=== PATIENT | female | born 1990 | race Caucasian/White ===

== ENCOUNTER 2017-03-30 02:21 | Emergency (ER) | payer OTHER ==
[2017-03-30] MEDS ORDERED: Morphine INJ* 4 MG/ML 1 ML CARPUJECT IV ONE (02:52)
[2017-03-30] MEDS ORDERED: Metoclopramide IV* 5 MG/ML 2 ML VIAL IV ONE (02:52)
[2017-03-30] MEDS ORDERED: NS 0.9% 1000 ML* 1,000 ML IV ONE (02:52)
[2017-03-30] MEDS ORDERED: Pantoprazole IV* 40 MG IV ONE (02:54)
[2017-03-30] MEDS ORDERED: Morphine INJ* 4 MG/ML 1 ML SYRINGE (NEW SYRINGE VERSION) ONE (03:01)
[2017-03-30 03:30] LABS: ABS Basophils 0 10^3/ul (0-0.2); ABS Eosinophils 0 10^3/ul (0-0.6); ABS Lymphocytes 1.3 10^3/ul (1.0-4.8); ABS Monocytes 0.7 10^3/ul (0-0.8); ABS Neutrophils 7.4 10^3/ul (1.5-7.7); ABS Nucleated RBC 0 10^3/ul; Eosinophil % 0.4 % (0-6); Hematocrit 40 % (35-47); Hemoglobin 13.9 g/dl (12.0-16.0); Lymphocyte % 14.1 % (25-47); Mean Corpuscular HGB Conc 35 g/dl (31-36); Mean Corpuscular Hemoglobin 30 pg (27-31); Mean Corpuscular Volume 86 fL (80-97); Mean Platelet Volume 10 um3 (7.4-10.4); Nucleated Red Blood Cells % 0.1; Platelet Count 180 10^3/ul (150-450); Red Blood Count 4.71 10^6/ul (4.0-5.4); Red Cell Distribution Width 12 % (10.5-15); White Blood Count 9.6 10^3/ul (3.5-10.8)
[2017-03-30 03:44] LABS: EGFR Non-African American 113.4 (>60)
[2017-03-30] MEDS ORDERED: Potassium Chlor TAB* 20 MEQ TAB.ER PO ONE (03:52)
[2017-03-30 04:09] VITALS: BP 106/68
--- NOTE | 2017-03-30 04:16 | ED ---
Laura Elizalde Thomas, scribed for Erik Quan MD on 03/30/17 at 0254 . Abdominal Pain/Female - HPI Summary HPI Summary: The patient presents with abdominal pain that woke her up an hour ago. She was nauseous and had some vomiting. The pain comes in waves. She rates the pain 7/ 10. She additional complains of pelvic pain. - History of Current Complaint Chief Complaint: EDAbdPain Stated Complaint: ABD PAIN Time Seen by Provider: 03/30/17 02:46 Hx Obtained From: Patient Onset/Duration: Lasting Hours - 1, Still Present Timing: Intermittent Episode Lasting Severity Currently: Severe Pain Intensity: 7 Pain Scale Used: 0-10 Numeric Radiates: No Aggravating Factor(s): Other: - Palpation Alleviating Factor(s): Nothing Associated Signs and Symptoms: Positive: Nausea, Vomiting, Other: - Pelvic pain Allergies/Adverse Reactions: Allergies Allergy/AdvReac Type Severity Reaction Status Date / Time bee venom protein (honey bee) Allergy Swelling Verified 03/30/17 02:26 PMH/Surg Hx/FS Hx/Imm Hx Endocrine/Hematology History: Denies: Hx Diabetes Cardiovascular History: Denies: Hx Hypertension, Hx Pacemaker/ICD History: Denies: Hx Renal Disease Sensory History: Denies: Hx Hearing Aid Psychiatric History: Denies: Hx Panic Disorder Infectious Disease History: No Infectious Disease History: Denies: Traveled Outside the [place] in Last 30 Days - Family History Known Family History: Positive: Other - Patient denies relevant Fhx - Social History Alcohol Use: Occasionally Substance Use Type: Reports: Other Substance Use Comment - Amount & Last Used: unknown Smoking Status (MU): Unknown if Ever Smoked Review of Systems Negative: Fever Positive: Abdominal Pain, Vomiting, Nausea Genitourinary: Other - Pelvic pain All Other Systems Reviewed And Are Negative: Yes Physical Exam - Summary Physical Exam Summary: VITAL SIGNS: Reviewed. GENERAL: Patient is a well-developed and nourished FEMALE who is lying comfortable in the stretcher. Patient is not in any acute respiratory distress. HEAD AND FACE: No signs of trauma. No ecchymosis, hematomas or skull depressions. No sinus tenderness. EYES: PERRLA, EOMI x 2, No injected conjunctiva, no nystagmus. EARS: Hearing grossly intact. Ear canals and tympanic membranes are within normal limits. MOUTH: Oropharynx within normal limits. NECK: Supple, trachea is midline, no adenopathy, no JVD, no carotid bruit, no c- spine tenderness, neck with full ROM. CHEST: Symmetric, no tenderness at palpation LUNGS: Clear to auscultation bilaterally. No wheezing or crackles. CVS: Regular rate and rhythm, S1 and S2 present, no murmurs or gallops appreciated. ABDOMEN: Soft. Epigastric tenderness. No signs of distention. No rebound no guarding, and no masses palpated. Bowel sounds are hyperactive. EXTREMITIES: FROM in all major joints, no edema, no cyanosis or clubbing. NEURO: Alert and oriented x 3. No acute neurological deficits. Speech is normal and follows commands. SKIN: Dry and warm Triage Information Reviewed: Yes Vital Signs On Initial Exam: Initial Vitals Temp Pulse Resp BP Pulse Ox 98.0 F 56 16 142/92 100 03/30/17 02:23 03/30/17 02:23 03/30/17 02:23 03/30/17 02:23 03/30/17 02:23 Vital Signs Reviewed: Yes Diagnostics - Vital Signs Vital Signs Temp Pulse Resp BP Pulse Ox 03/30/17 02:23 98.0 F 56 16 142/92 100 - Laboratory Result Diagrams: 03/30/17 03:15 03/30/17 03:15 Lab Statement: Any lab studies that have been ordered have been reviewed, and results considered in the medical decision making process. Abdominal Pain Fem Course/Dx - Course Course Of Treatment: The patient presents with abdominal pain that woke her up an hour ago. She was nausea and had some vomiting. The pain comes in waves. She rates the pain 7/10. She additional complains of pelvic pain. Bloodwork and urinalysis was obtained. The patient was given IV fluids, Reglan, morphine, Pepcid, and potassium chloride. The patient feels better and will be discharged home with primary care follow up. - Diagnoses Provider Diagnoses: Pain, abdominal, nonspecific Discharge - Discharge Plan Condition: Stable Disposition: HOME Patient Education Materials: Abdominal Pain (ED) Referrals: [facility] [Outside] - 3 Days Additional Instructions: Follow up with your primary care physician in three days. Return to the emergency department for any new or worsening symptoms. The documentation as recorded by the Laura perez Thomas accurately reflects the service I personally performed and the decisions made by Avelina quiñones Abdul, MD.
== END 2017-03-30 04:18 | disposition home or self-care (01) ==
LOC: ED 02:21
DX: R10.9 Unspecified abdominal pain (principal)
CPT/HCPCS: 36415; 80053; 82150; 83690; 83735; 84702; 85025; 86140; 96360; 96374; 96375; 99284; J2270; J2765

== ENCOUNTER 2017-04-22 06:12 | Day surgery (SDC) | payer OTHER ==
[~2017-04-22 06:12] MED LIST: Buffered Lidocaine 0.9% SYRIN* 5 ML/SYR SYRINGE INTRADERM ONE; Dexamethasone IV* 4 MG/ML 1 ML (4 MG) IV SLOW PU ONE; Famotidine IV* 10 MG/ML 2 ML (20 mg) IV ONE
[2017-04-22] MEDS ORDERED: Famotidine IV* 10 MG/ML 2 ML (20 mg) ONE (06:18)
[2017-04-22] MEDS ORDERED: ceFOXitin(*) 1 GM VIAL ONE (06:19)
[2017-04-22] MEDS ORDERED: Dexamethasone IV* 4 MG/ML 1 ML (4 MG) ONE (06:19)
[2017-04-22] MEDS ORDERED: Bupivacaine 0.5% SDV PF* 10-30ML VIAL ONE (06:46)
[2017-04-22] MEDS ORDERED: Bupivacaine 0.25% SDV* 30 ML ONE (06:47)
[2017-04-22] MEDS ORDERED: Atracurium* 10 MG/ML 10 ML VIAL ONE (07:15)
[2017-04-22] MEDS ORDERED: fentaNYL* 50 MCG/ML 5 ML VIAL (250 MCG VIAL) ONE (07:15)
[2017-04-22] MEDS ORDERED: Ondansetron INJ* 2 MG/ML VIAL ONE ×2 (07:15→10:44)
[2017-04-22] MEDS ORDERED: Midazolam* 1 MG/ML 5 ML VIAL (5 MG) ONE (07:15)
[2017-04-22] MEDS ORDERED: Ketorolac INJ* 30 MG/ML 1 ML VIAL ONE (07:15)
[2017-04-22] MEDS ORDERED: Propofol* 10 MG/ML 20 ML BTL IV PUSH ONE (07:15)
[2017-04-22] MEDS ORDERED: Lidocaine 2% PF * 5 ML VIAL ONE (07:16)
[2017-04-22] MEDS ORDERED: Scopolamine 1.5 mg* PATCH TRANSDERM PRN (07:26)
[2017-04-22] MEDS ORDERED: Naloxone* 0.4 MG/ML 1 ML VIAL IV PRN (07:26)
[2017-04-22] MEDS ORDERED: oxyCODONE/Acetamin 5/325 MG* TAB PO PRN (07:26)
[2017-04-22] MEDS ORDERED: HYDROmorphone INJ* 1 MG/ML CARPUJECT SYRINGE IV PRN (07:26)
[2017-04-22] MEDS ORDERED: DiMENhydriNATE IV* 50 MG/ML VIAL IV PUSH PRN (07:26)
[2017-04-22] MEDS ORDERED: Ondansetron INJ* 2 MG/ML VIAL IV PRN (07:26)
[2017-04-22] MEDS ORDERED: fentaNYL* 50 MCG/ML 2 ML VIAL (100 MCG VIAL) ONE (09:27)
[2017-04-22] MEDS: fentaNYL* 50 MCG/ML 2 ML VIAL (100 MCG VIAL) IV PRN ×2 (09:28→09:34)
[2017-04-22] MEDS ORDERED: oxyCODONE/Acetamin 5/325 MG* TAB ONE (10:08)
[2017-04-22 11:11] VITALS: BP 112/77
--- NOTE | 2017-05-11 22:41 | OP ---
DATE OF OPERATION: 04/22/17 - [facility] DATE OF : 89 SURGEON: Cleveland Lyle MD BUILDING MECHANIC: MELISSA Cabello ANESTHESIA: General anesthetic with endotracheal intubation. PRE-OP DIAGNOSES: Chronic pelvic pain with a presumptive diagnosis of endometriosis. POST-OP DIAGNOSES: Chronic pelvic pain with a presumptive diagnosis of endometriosis along with pelvic adhesions and endometrial cyst like lesions in the peritoneum. OPERATIVE PROCEDURE: Diagnostic laparoscopy, lysis of adhesions and a peritoneal biopsy of endometriosis implant. ESTIMATED BLOOD LOSS: None. SPECIMENS SENT TO PATHOLOGY: Posterior uterine cul-de-sac, retroperitoneal biopsy. IV FLUIDS: She received 1600 cc of IV crystalloid fluid. URINE OUTPUT: Clear. FINDINGS: The patient was noted to have cecum and bowel adherent to the right pelvic anterior sidewall. She had a normal appendix. She had a normal right tube and ovary. Normal uterus, bladder. There was posterior sparse endometriosis like implant in the posterior uterine cul-de-sac. The left tube and ovary were within normal limits. She had adhesions from the left pelvic sidewall just above the sigmoid. She had a normal liver edge, normal gallbladder and normal diaphragm. DESCRIPTION OF PROCEDURE: The patient was taken to the operating room where she was identified. She was placed on the operating table where a general anesthetic with endotracheal intubation was obtained without difficulty. She was then placed in the dorsal lithotomy position, prep and drape in normal sterile fashion. Patient was then brought on to the patient's perineum. The bladder was catheterized with a Booker catheter and drained of clear urine. A weighted-speculum was inserted into the patient's vagina. The cervix was identified, grasped with a single-tooth tenaculum. The uterus was then sounded to about 8 cm in an anteverted position and through the cervix, a ClearView uterine manipulator was introduced. The balloon and the manipulator was insufflated with 4 cc of sterile water. At this point, attention was then brought on to the patient's abdomen where a 1-cm infraumbilical skin incision made with a knife and carried through to the underlying layer of fascia. The fascia was then grasped with Ca clamps, brought up to the incision and incised medially with the knife sharply. Entry into the patient's abdomen was confirmed using a Maite clamp. The Ca clamps were then replaced with 0 Polysorb suture. Through this incision, a 10-mm trocar was introduced and attached to the sutures. The balloon and the trocar was insufflated with 20 cc of air and into through trocar, a scope was introduced. The patient's abdomen was then insufflated with CO2 gas. She was placed in a Trendelenburg position and a survey of the patient's anatomy confirmed findings as noted above. Two trocars were introduced at their right and left upper quadrant aspect of the patient's abdomen under direct visualization. At this point, I proceeded to remove the filmy adhesions from the right abdominal pelvic sidewall to the bowel. This was done using blunt and sharp dissection with a LigaSure device and cautery. The same was done to left pelvic sidewall and bowel adhesions. On the left side, I was unable to completely remove all the adhesions because some of the adhesions were pretty dense and away from the pelvis. Once the adhesions were mobilized, I was able to then completely view the pelvis, fallopian tubes, ovaries, cul-de-sac, and uterus. The patient was noted to have several endometriosis like implants on the posterior aspect of the uterine wall and cul-de-sac. One was biopsied using sharp scissors to remove the endometrial implant, which was sent to Pathology. This was then grasped with LigaSure and cauterized. The other implants were then cauterized using LigaSure. There was a total of about 4 sites that were cauterized. At this point, I appreciated then to irrigate the patient's abdomen. The irrigation fluid was then removed. The site of cautery and lysis of adhesions were noted to be completely hemostatic, so I then proceeded to remove all the instruments from the patient's abdomen. The CO2 gas was removed as well. The fascia on the umbilicus was closed using 0 Polysorb suture in a running fashion and all the skin incisions were then closed with 4-0 Monocryl in a subcuticular stitch. The instruments from the patient's vagina were also removed as well as the uterine manipulator and Booker catheter. Sponge, lap, and needle counts were correct x2. She was then transferred to recovery room area in stable condition. [id number]/[facility] #: [id number] [facility]
== END 2017-04-22 11:15 | disposition home or self-care (01) ==
LOC: OR 06:12
PROVIDERS: ATTEND Obstetrics & Gynecology
DX: N80.3 Endometriosis of pelvic peritoneum (principal); R10.2 Pelvic and perineal pain; K66.0 Peritoneal adhesions (postprocedural) (postinfection); J45.909 Unspecified asthma, uncomplicated
CPT/HCPCS: 81025; 88305; A9270-GY; J0694; J1100; J1885; J2250; J2405; J2704; J3010

== ENCOUNTER 2018-09-22 22:46 | Emergency (ER) | payer OTHER ==
[2018-09-23] MEDS ORDERED: hydrALAZINE IV* 20 MG/ML VIAL IV SLOW PU ONE
[2018-09-23 00:06] LABS: ABS Eosinophils 0.1 10^3/ul (0-0.6); ABS Lymphocytes 1.5 10^3/ul (1.0-4.8); ABS Monocytes 0.9 10^3/ul (0-0.8); ABS Neutrophils 8.9 10^3/ul (1.5-7.7); Eosinophil % 0.5 %; Hematocrit 32 % (35-47); Lymphocyte % 12.9 %; Mean Corpuscular HGB Conc 35 g/dL (31-36); Mean Corpuscular Hemoglobin 32 pg (27-31); Mean Corpuscular Volume 91 fL (80-97); Mean Platelet Volume 9.3 fL (7.4-10.4); Platelet Count 161 10^3/uL (150-450); Red Blood Count 3.48 10^6 /uL (3.70-4.87); Red Cell Distribution Width 13 % (10-15); White Blood Count 11.3 10^3/uL (3.5-10.8)
--- NOTE | 2018-09-23 00:11 | ED ---
GI/ HPI - HPI Summary HPI Summary: This patient is a 28 year old female presenting to [facility] with a chief complaint of left flank pain. 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 She reports nausea. She denies vomiting. She rates her pain 8/10 in severity. She says moving and breathing aggravates the pain. She states she has never had pain like this before. - History of Current Complaint Chief Complaint: EDFlankPain Time Seen by Provider: 09/22/18 23:59 Stated Complaint: 22 WEEKS , BACK PAIN PER BOYFRIEND Hx Obtained From: Patient Onset/Duration: Started Hours Ago Timing: Constant Pain Intensity: 8 - Allergy/Home Medications Allergies/Adverse Reactions: Allergies Allergy/AdvReac Type Severity Reaction Status Date / Time bee venom protein (honey bee) Allergy Intermediate Swelling Verified 04/18/17 09 :20 Iodinated Contrast- Oral and Allergy Mild Rash Verified 09/23/17 18:10 IV Dye latex Allergy Mild Rash Verified 04/18/17 09:20 Home Medications: Home Medications Cetirizine* [ZyrTEC 10 MG TAB*] 10 mg PO DAILY 09/23/18 [History Confirmed 09/23] [place]-3 Fatty Acids/Fish Oil [Fish Oil 1200 mg] 1 cap PO 09/23/18 [History] Pnv No.103/Folic/Om3s/Fish Oil [ Gummies/Dha & Fo 0.4-32.5 mg] 1 chw PO 09/23/18 [History] Pyridoxine HCl (Vitamin B6) [Vitamin B-6] 25 mg PO BID 09/23/18 [History Confirmed 09/23/18] PMH/Surg Hx/FS Hx/Imm Hx Endocrine/Hematology History: Denies: Hx Diabetes Cardiovascular History: Denies: Hx Hypertension, Hx Pacemaker/ICD Respiratory History: Reports: Hx Asthma - no attacks for many years History: Denies: Hx Renal Disease Musculoskeletal History: Reports: Other Musculoskeletal History - sciatica Sensory History: Reports: Hx Contacts or Glasses - both= will wear glasses day of surgery Denies: Hx Hearing Aid Opthamlomology History: Reports: Hx Contacts or Glasses - both= will wear glasses day of surgery Psychiatric History: Denies: Hx Panic Disorder - Cancer History Hx Chemotherapy: No - Surgical History Surgery Procedure, Year, and Place: LAPEROSCOPY Infectious Disease History: No Infectious Disease History: Denies: Traveled Outside the [place] in Last 30 Days - Family History Known Family History: Positive: Other - Patient denies relevant Fhx - Social History Alcohol Use: Occasionally Substance Use Type: Reports: Other Substance Use Comment - Amount & Last Used: unknown Smoking Status (MU): Unknown if Ever Smoked Review of Systems Positive: Nausea. Negative: Vomiting Positive: flank pain All Other Systems Reviewed And Are Negative: Yes Physical Exam - Summary Physical Exam Summary: VITAL SIGNS: Reviewed. GENERAL: Patient is a well-developed and nourished FEMALE who is lying comfortable in the stretcher. Patient is not in any acute respiratory distress. HEAD AND FACE: No signs of trauma. No ecchymosis, hematomas or skull depressions. No sinus tenderness. EYES: PERRLA, EOMI x 2, No injected conjunctiva, no nystagmus. EARS: Hearing grossly intact. Ear canals and tympanic membranes are within normal limits. MOUTH: Oropharynx within normal limits. NECK: Supple, trachea is midline, no adenopathy, no JVD, no carotid bruit, no c- spine tenderness, neck with full ROM. Left mid back pain. CHEST: Symmetric, no tenderness at palpation LUNGS: Clear to auscultation bilaterally. No wheezing or crackles. CVS: Regular rate and rhythm, S1 and S2 present, no murmurs or gallops appreciated. ABDOMEN: Soft, non-tender. No signs of distention. No rebound no guarding, and no masses palpated. Bowel sounds are normal. Fundal is at 20 weeks. EXTREMITIES: FROM in all major joints, no edema, no cyanosis or clubbing. NEURO: Alert and oriented x 3. No acute neurological deficits. Speech is normal and follows commands. SKIN: Dry and warm Triage Information Reviewed: Yes Vital Signs On Initial Exam: Initial Vitals Temp Pulse Resp BP Pulse Ox 97.3 F 84 20 113/79 100 09/22/18 22:48 09/22/18 22:48 09/22/18 22:48 09/22/18 22:48 09/22/18 22:48 Vital Signs Reviewed: Yes Diagnostics - Vital Signs Vital Signs Temp Pulse Resp BP Pulse Ox 09/22/18 22:48 97.3 F 84 20 113/79 100 - Laboratory Result Diagrams: 09/22/18 23:49 09/22/18 23:49 Lab Statement: Any lab studies that have been ordered have been reviewed, and results considered in the medical decision making process. - Ultrasound No standard instances Ultrasound Interpretation Completed By: Radiologist Summary of Ultrasound Findings: Renal US: 1. Left-sided hydronephrosis which is moderate in severity. 2. Irregular thinkening of the superior ladder wall. This appears to be a soft tissue lesion. Recommend further correlation with a consideration of an MRI study. ED Provider has reviewed this report. GIGU Course/Dx - Course Course Of Treatment: This patient is a 28 year old female presenting to [facility] with a chief complaint of right flank pain. 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 Renal US reveals 1. Left-sided hydronephrosis which is moderate in severity. 2. Irregular thinkening of the superior ladder wall. She feels better after taking Tylenol. She will follow up with her OB on Tuesday. A plan for discharge was discussed with the patient and she was agreeable with this plan. - Diagnoses Provider Diagnoses: Hydronephrosis, left Discharge - Sign-Out/Discharge Documenting (check all that apply): Patient Departure - Discharge Patient Received Moderate/Deep Sedation with Procedure: No - Discharge Plan Condition: Stable Disposition: HOME Patient Education Materials: Hydronephrosis (ED) Referrals: No Primary Care Phys,NOPCP [Primary Care Provider] - Additional Instructions: Follow up with your dental amalgam processor on Tuesday. - Attestation Statements Document Initiated by Scribe: Yes Documenting Scribe: Karan Morales Provider For Whom Carisaibe is Documenting (Include Credential): Erik Quan MD Scribe Attestation: Karan Elizalde, lindyed for Erik Quan MD on 09/23/18 at 0145. Status of Scribe Document: Ready
[2018-09-23 00:17] LABS: Albumin 3.7 g/dL (3.2-5.2); Albumin/Globulin Ratio 1.3 (1-3); BUN/Creatinine Ratio 10.5 (8-20); Calcium 9.6 mg/dL (8.6-10.3); EGFR Non-African American 201.7 (>60); Globulin 2.9 g/dL (2-4); Potassium 3.7 mmol/L (3.5-5.0); Total Bilirubin 0.3 mg/dL (0.2-1.0); Total Protein 6.6 g/dL (6.4-8.9)
[2018-09-23 00:31] LABS: Urine Appearance Clear; Urine Bilirubin Negative (Negative); Urine Blood Negative (Negative); Urine Color Colorless; Urine Glucose Negative (Negative); Urine Ketones Negative (Negative); Urine Nitrite Negative (Negative); Urine Protein Negative (Negative); Urine Specific Gravity 1.002 (1.010-1.030); Urine Urobilinogen Negative (Negative)
[2018-09-23] MEDS ORDERED: Metoclopramide IV* 5 MG/ML 2 ML VIAL IV SLOW PU ONE (00:31)
[2018-09-23] MEDS ORDERED: Acetaminophen ADULT LIQ* 650 MG/20.3 ML UDC PO ONE (00:31)
[2018-09-23] MEDS ORDERED: Lactated Ringers 1000 ML Bag* 1,000 ML IV SCH (01:00)
[2018-09-23 03:41] VITALS: BP 105/58
== END 2018-09-23 03:10 | disposition home or self-care (01) ==
LOC: ED 22:46
DX: N13.30 Unspecified hydronephrosis (principal); J45.909 Unspecified asthma, uncomplicated; Z91.041 Radiographic dye allergy status; Z91.040 Latex allergy status; Z79.899 Other long term (current) drug therapy
CPT/HCPCS: 36415; 76775; 80053; 81003; 85025; 96374; 96375; 99283; A9270-GY

== ENCOUNTER 2018-11-10 19:33 | Emergency (ER) | payer OTHER ==
--- NOTE | 2018-11-10 19:49 | UC ---
Eye Complaint HPI - HPI Summary HPI Summary: 28 yo female presents with RIGHT eye pressure. She tells me that this morning she woke up and had some mild right eye pressure that waxed and waned throughout the day. She wears contacts daily and took them out a few hours ago and she feels that the pressure has increased since that time. Currently rates pressure discomfort at a 3, but can go up to an 8. She has had some clear drainage/tears from the eye. Slight photophobia. She has also been having trouble with sinus pain/pressure/congestion for the last week. Has not been taking anything OTC for her symptoms. She is currently 29 weeks - no issues thusfar with . She denies headaches, vision changes, trauma to the eye, fever, chills, sore throat, cough. She sees Dr. Delarosa for her eye care. - History of Current Complaint Stated Complaint: eye IRRITATION Time Seen by Provider: 11/10/18 19:48 Hx Obtained From: Patient Onset/Duration: Gradual Onset Severity Initially: Mild Severity Currently: Moderate Pain Intensity: 6 Pain Scale Used: 0-10 Numeric - Allergies/Home Medications Allergies/Adverse Reactions: Allergies Allergy/AdvReac Type Severity Reaction Status Date / Time bee venom protein (honey bee) Allergy Intermediate Swelling Verified 11/10/18 19 :54 Iodinated Contrast Media Allergy Mild Rash Verified 11/10/18 19:54 latex Allergy Mild Rash Verified 11/10/18 19:54 Home Medications: Home Medications Cholecalciferol (Vitamin D3) [Vitamin D3] 2,000 unit PO DAILY WITH MEAL [History Confirmed 11/10/18] Magnesium Oxide [Magnesium] 200 mg PO DAILY WITH MEAL 11/10/18 [History Confirmed 11/10/18] PMH/Surg Hx/FS Hx/Imm Hx - Additional Past Medical History Additional PMH: None - Surgical History Surgical History: None Surgery Procedure, Year, and Place: LAPEROSCOPY - Family History Known Family History: Positive: Other - Patient denies relevant Fhx - Social History Lives: With Family Alcohol Use: Occasionally Substance Use Type: Other Substance Use Comment - Amount & Last Used: unknown Smoking Status (MU): Never Smoked Tobacco Review of Systems All Other Systems Reviewed And Are Negative: No Constitutional: Positive: Negative Skin: Positive: Negative Eyes: Positive: Other - Eye pain ENT: Positive: Nasal Discharge, Sinus Congestion, Sinus Pain/Tenderness Respiratory: Positive: Negative Cardiovascular: Positive: Negative Neurological: Positive: Negative Psychological: Positive: Negative Physical Exam - Summary Physical Exam Summary: GENERAL: WDWN. No pain distress. SKIN: No rashes, sores, lesions, or open wounds. HEENT: Head: AT/NC Eyes: EOM intact without pain b/l. PERRLA. RIGHT EYE: No scleral injection. Conjunctiva without erythema and inflammation. No discharge. No exopthalmous. Fluorescein exam revealed no increased uptake. No abrasion, ulceration, lesion, or pete sign. Ears: Hearing grossly normal. TMs intact, no bulging, erythema, or edema. Nose: Nasal mucosa mildly swollen and erythematous with yellow/ clear discharge. TTP maxillary and frontal sinus. Positive post nasal drip Throat: Posterior oropharynx without exudates, erythema, or tonsillar enlargement. Uvula midline. NECK: Supple. Nontender. No lymphadenopathy. CHEST: CTAB. No r/r/w. No accessory muscle use. Breathing comfortably and in no distress. CV: RRR. Without m/r/g. Pulses intact. NEURO: Alert. PSYCH: Age appropriate behavior. Triage Information Reviewed: Yes Vital Signs: Vital Signs: Temp Pulse Resp BP Pulse Ox 98.3 F 96 19 113/71 100 11/10/18 19:49 11/10/18 19:49 11/10/18 19:49 11/10/18 19:49 11/10/18 19:49 Vital Signs Reviewed: Yes Eye Complaint Course/Dx - Course Course Of Treatment: Pt had no relief with tetracaine instillation. Suspect glaucoma during - however I am unable to test intraocular pressure in the clinic. I called Dr. Delarosa and discussed the case with him, he will see pt in his office tomorrow. He mentions that glaucoma is low on his differential as it is usually bilateral and she is having no changes in visual acuity. He recommends treated her sinus congestion and he will see her in his office tomorrow. Discussed with pt and her with her today and they are agreeable with the plan. Advised to try OTC flonase and mucinex. Go to ED if pain worsens or if develops visual changes. - Differential Dx/Diagnosis Provider Diagnosis: Eye pressure, Sinus congestion Discharge ED - Sign-Out/Discharge Documenting (check all that apply): Patient Departure All imaging exams completed and their final reports reviewed: No Studies - Discharge Plan Condition: Stable Disposition: HOME Patient Education Materials: Sinusitis (ED), Eye Pain (ED) Referrals: No Primary Care Phys,NOPCP [Primary Care Provider] - Additional Instructions: If you develop a fever, shortness of breath, chest pain, new or worsening symptoms - please call your PCP or go to the ED immediately. Please try flonase and mucinex as directed [id number]. These medications, when used as recommended doses, are ok in . Please follow up with Dr. Delarosa - he will see you in his office tomorrow to recheck your eye - Billing Disposition and Condition Condition: STABLE Disposition: Home
[2018-11-10 19:54] VITALS: BP 113/71
[2018-11-10] MEDS ORDERED: Tetracaine 0.5% OPTH.SOL 4 ML* 1 DROP BTL BOTH EYES ONE (20:02)
[2018-11-10] MEDS ORDERED: Fluorescein Sodium TOPICAL* 1 MG TEST STRIP OPHTHALMIC ONE (20:10)
== END 2018-11-10 20:46 | disposition home or self-care (01) ==
LOC: UCEAST 19:33
DX: O26.893 Other specified pregnancy related conditions, third trimester (principal); H57.89 Other specified disorders of eye and adnexa; R09.81 Nasal congestion; Z3A.29 29 weeks gestation of pregnancy; Z91.030 Bee allergy status; Z91.041 Radiographic dye allergy status; Z91.040 Latex allergy status
CPT/HCPCS: 99211; A9270-GY; G0463

== ENCOUNTER 2018-11-24 18:32 | Emergency (ER) | payer OTHER ==
[2018-11-24 20:09] LABS: Hematocrit 33 % (35-47); Hemoglobin 11.5 g/dL (12.0-16.0); Mean Corpuscular HGB Conc 35 g/dL (31-36); Mean Corpuscular Hemoglobin 32 pg (27-31); Mean Corpuscular Volume 91 fL (80-97); Mean Platelet Volume 9.6 fL (7.4-10.4); Platelet Count 169 10^3/uL (150-450); Red Blood Count 3.65 10^6 /uL (3.70-4.87); Red Cell Distribution Width 15 % (10-15); White Blood Count 14.8 10^3/uL (3.5-10.8)
[2018-11-24 20:29] LABS: Albumin 3.6 g/dL (3.2-5.2); Albumin/Globulin Ratio 1.3 (1-3); BUN/Creatinine Ratio 14.3 (8-20); EGFR African American 268.3 (>60); EGFR Non-African American 221.7 (>60); Globulin 2.7 g/dL (2-4); Magnesium 1.9 mg/dL (1.9-2.7); Potassium 3.4 mmol/L (3.5-5.0); Total Bilirubin 0.3 mg/dL (0.2-1.0); Total Protein 6.3 g/dL (6.4-8.9)
[2018-11-24 20:31] LABS: ABS Eosinophils 0.1 10^3/ul (0-0.6); ABS Lymphocytes 2.1 10^3/ul (1.0-4.8); ABS Monocytes 1.2 10^3/ul (0-0.8); ABS Neutrophils 11.5 10^3/ul (1.5-7.7); Eosinophil % 0.5 %; Lymphocyte % 14.1 %
--- NOTE | 2018-11-24 20:35 | ED ---
Palpitations / Dysrhythmia - HPI Summary HPI Summary: 28-year-old female at 31 weeks presents with palpitations today. States she is complaining is weird feeling in her chest for a couple minutes for the past 5 days. She states symptoms are intermittently. States feels like a pressure. She states that her left arm becomes week. She denies any increased swelling or pain in her legs. No shortness of breath. States it feels better when she takes a deep breath. She does have a cough. No recent illness. no recent travel. Nonsmoker. - History of Current Complaint Chief Complaint: EDDysrhythmPalp Time Seen by Provider: 11/24/18 19:45 - Allergy/Home Medications Allergies/Adverse Reactions: Allergies Allergy/AdvReac Type Severity Reaction Status Date / Time bee venom protein (honey bee) Allergy Intermediate Swelling Verified 11/10/18 19 :54 Iodinated Contrast Media Allergy Mild Rash Verified 11/10/18 19:54 latex Allergy Mild Rash Verified 11/10/18 19:54 PMH/Surg Hx/FS Hx/Imm Hx Endocrine/Hematology History: Denies: Hx Diabetes, Hx Thyroid Disease Cardiovascular History: Denies: Hx Hypertension, Hx Pacemaker/ICD Respiratory History: Reports: Hx Asthma - no attacks for many years Denies: Hx Chronic Obstructive Pulmonary Disease (COPD) GI History: Denies: Hx Ulcer History: Denies: Hx Renal Disease Musculoskeletal History: Reports: Other Musculoskeletal History - sciatica Sensory History: Reports: Hx Contacts or Glasses - both= will wear glasses day of surgery Denies: Hx Hearing Aid Opthamlomology History: Reports: Hx Contacts or Glasses - both= will wear glasses day of surgery Psychiatric History: Denies: Hx Panic Disorder - Cancer History Hx Chemotherapy: No - Surgical History Surgery Procedure, Year, and Place: LAPEROSCOPY - Immunization History Immunizations Up to Date: Yes Infectious Disease History: No Infectious Disease History: Denies: Hx Hepatitis, Hx Human Immunodeficiency Virus (HIV), Traveled Outside the [place] in Last 30 Days - Family History Known Family History: Positive: Other - Patient denies relevant Fhx - Social History Alcohol Use: Occasionally Alcohol Amount: prior to Substance Use Type: Reports: None Substance Use Comment - Amount & Last Used: unknown Smoking Status (MU): Never Smoked Tobacco Review of Systems Negative: Fever Positive: Chest Pain Positive: Shortness Of Breath, Cough All Other Systems Reviewed And Are Negative: Yes Physical Exam Triage Information Reviewed: Yes Vital Signs On Initial Exam: Initial Vitals Temp Pulse Resp BP Pulse Ox 98.4 F 92 16 107/70 98 11/24/18 18:33 11/24/18 18:33 11/24/18 18:33 11/24/18 18:33 11/24/18 18:33 Vital Signs Reviewed: Yes Appearance: Positive: Well-Appearing Skin: Positive: Warm, Dry Head/Face: Positive: Normal Head/Face Inspection Eyes: Positive: Normal, EOMI, MOISES, Conjunctiva Clear ENT: Positive: Normal ENT inspection, Pharynx normal, TMs normal Neck: Positive: Supple, Nontender, No Lymphadenopathy Respiratory/Lung Sounds: Positive: Clear to Auscultation, Breath Sounds Present Cardiovascular: Positive: Normal, RRR Abdomen Description: Positive: Other: - baby felt above umblicius Bowel Sounds: Positive: Present Musculoskeletal: Positive: Normal Neurological: Positive: Normal Psychiatric: Positive: Normal Procedures - Sedation Patient Received Moderate/Deep Sedation with Procedure: No Diagnostics - Vital Signs Vital Signs Temp Pulse Resp BP Pulse Ox 11/24/18 18:33 98.4 F 92 16 107/70 98 - Laboratory Lab Results: Lab Results 11/24/18 11/24/18 11/24/18 Range/Units 19:54 19:54 19:55 WBC 14.8 H (3.5-10.8) 10^3/uL RBC 3.65 L (3.70-4.87) 10^6 /uL Hgb 11.5 L (12.0-16.0) g/dL Hct 33 L (35-47) % MCV 91 (80-97) fL MCH 32 H (27-31) pg MCHC 35 (31-36) g/dL RDW 15 (10-15) % Plt Count 169 (150-450) 10^3/uL MPV 9.6 (7.4-10.4) fL Neut % (Auto) 77.4 % Lymph % (Auto) 14.1 % [place] % (Auto) 7.8 % Eos % (Auto) 0.5 % Baso % (Auto) 0.2 % Absolute Neuts (auto) 11.5 H (1.5-7.7) 10^3/ul Absolute Lymphs (auto) 2.1 (1.0-4.8) 10^3/ul Absolute Monos (auto) 1.2 H (0-0.8) 10^3/ul Absolute Eos (auto) 0.1 (0-0.6) 10^3/ul Absolute Basos (auto) 0.0 (0-0.2) 10^3/ul Absolute Nucleated RBC 0.0 10^3/ul Nucleated RBC % 0.0 Sodium 135 (135-145) mmol/L Potassium 3.4 L (3.5-5.0) mmol/L Chloride 105 (101-111) mmol/L Carbon Dioxide 24 (22-32) mmol/L Anion Gap 6 (2-11) mmol/L BUN 5 L (6-24) mg/dL Creatinine 0.35 L (0.51-0.95) mg/dL Est GFR ( Amer) 268.3 (>60) Est GFR (Non-Af Amer) 221.7 (>60) BUN/Creatinine Ratio 14.3 (8-20) Glucose 85 (70-100) mg/dL Lactic Acid 0.6 (0.5-2.0) mmol/L Calcium 9.0 (8.6-10.3) mg/dL Magnesium 1.9 (1.9-2.7) mg/dL Total Bilirubin 0.30 (0.2-1.0) mg/dL AST 13 (13-39) U/L ALT 11 (7-52) U/L Alkaline Phosphatase 114 H (34-104) U/L Troponin I 0.00 (<0.04) ng/mL Total Protein 6.3 L (6.4-8.9) g/dL Albumin 3.6 (3.2-5.2) g/dL Globulin 2.7 (2-4) g/dL Albumin/Globulin Ratio 1.3 (1-3) TSH Pending Result Diagrams: 11/24/18 19:54 11/24/18 19:54 Lab Statement: Any lab studies that have been ordered have been reviewed, and results considered in the medical decision making process. - Ultrasound No standard instances Ultrasound Interpretation Completed By: Radiologist Summary of Ultrasound Findings: IMPRESSION: No DVT of bilateral lower extremity veins. - EKG No standard instances Cardiac Rate: NL EKG Rhythm: Sinus Rhythm Summary of EKG Findings: sinus rhythm Course/Dx - Course Course Of Treatment: 28-year-old female at 31 weeks presents with palpitations today. States she is complaining is weird feeling in her chest for a couple minutes for the past 5 days. She states symptoms are intermittently. States feels like a pressure. She states that her left arm becomes week. She denies any increased swelling or pain in her legs. No shortness of breath. States it feels better when she takes a deep breath. She does have a cough. No recent illness. no recent travel. Nonsmoker. On exam has lungs auscultation. Heart regular rate and rhythm. EKG shows sinus rhythm. wbc 14. troponin zero. discussed case with dr hamilton. does not have A gradient on abg so not hypoxic and ultrasound bilateral negative and vitals normal so low suspicion for PE. will have follow up with ob. patient understand and agrees with plan. - Diagnoses Differential Diagnosis/HQI/PQRI: Positive: Paroxymal SVT, Pericarditis, Pulmonary Embolism Provider Diagnoses: Palpitations, Atypical chest pain Discharge ED - Sign-Out/Discharge Documenting (check all that apply): Patient Departure - Discharge Plan Condition: Good Disposition: HOME Patient Education Materials: Heart Palpitations (ED) Referrals: Replaced By [facility] - Aníbal [Primary Care Provider] - Cleveland Lyle MD [Family Provider] - Additional Instructions: follow up with ob within 5 days Return to ED if develop worsening shortness of breath, fever, or any new or worsening symptoms - Billing Disposition and Condition Condition: GOOD Disposition: Home
[2018-11-24 20:59] LABS: TSH (Thyroid Stimulating Horm) 1.39 mcIU/mL (0.34-5.60)
[2018-11-24 21:49] LABS: C Reactive Protein 2.95 mg/L (<8.01)
[2018-11-24 21:52] VITALS: BP 113/69
== END 2018-11-24 21:51 | disposition home or self-care (01) ==
LOC: ED 18:32
DX: R07.89 Other chest pain (principal); R00.2 Palpitations; R06.02 Shortness of breath; J45.909 Unspecified asthma, uncomplicated
CPT/HCPCS: 36415; 80053; 82803; 83605; 83735; 84443; 84484; 85025; 86140; 93005; 93970; 99283

== ENCOUNTER 2019-01-17 05:40 | Inpatient (IN) | payer OTHER ==
[2019-01-17] MEDS ORDERED: Buffered Lidocaine 1% SYRIN* 1 ML/SYRINGE INTRADERM ONE (09:09)
[2019-01-17] MEDS ORDERED: Lactated Ringers 1000 ML Bag* 1,000 ML IV ONE (09:09)
--- NOTE | 2019-01-17 09:19 | HP ---
General Information - Reason for Visit Pt reports contractions starting around 5pm last night and increasing in intensity and frequency overnight. Pt is coping well and declines pharmaceutical pain mgmt. - General Information Maternal Age: 28 Grav: 2 Para: 0 SAB: 1 IEA: 0 Estimated Due Date: 01/23/19 Determined By: Early Ultrasound Gestational Age in Weeks/Days: 39.1 Maternal Blood Type and Rh: O Positive - Results this Serology/RPR Result: Non-Reactive Rubella Result: Immune HBsAg Result: Negative HIV Result: Negative GBS Culture Result: Negative Past Medical History Pertinent Past Medical History: See Records - history of IBS, endometriosis, asthma, headaches, and allergic rhinitis Pertinent Past Surgical History: See Records - diagnostic laparoscopy , D/E - Antepartal Records Antepartal Records: Reviewed, Complicated by: - left sided hydronephrosis, anemia Review of Systems Constitutional: Uncomfortable CV Complaint: No Respiratory: Shortness of Breath: No Gastrointestinal: No Nausea/Vomiting, Normal Bowel Movement Genitourinary: No Dysuria, No Bleeding, No Leaking Fluid Musculoskeletal: No Epigastric Pain, Contractions Neurological: No Headache, No Visual Changes Movement: Normal Exam Allergies/Adverse Reactions: Allergies bee venom protein (honey bee) Allergy (Intermediate, Verified 11/10/18 19:54) Swelling Iodinated Contrast Media Allergy (Mild, Verified 11/10/18 19:54) Rash Pt developed diffuse upper body rash after drinking oral contrast. The rash resolved within 20-30 min. latex Allergy (Mild, Verified 11/10/18 19:54) Rash BP: 111/66, P:81, R:16, T:98.2 - Measurements Height: 5 ft 3 in Weight: 144 lb 13.499 oz Weight in lbs: 144.775153 Body Mass Index (BMI): 25.6 - Exam Breast: Breast Exam Deferred CVA: No CVA Tenderness Extremities: No Edema Heart: Normal Rhythm/Heart Sounds HEENT: No Significant Findings Lungs: Clear Bilaterally Rectal: Rectal Exam Deferred Reflexes: DTR 2+ Thyroid: No Thyromegaly - Abdominal Exam Abdomen Exam: Non-Tender, Fundal Height Consistent with Dates - Ultrasound/Biophysical Profile Ultrasound Status: Not Done Targeted Exam Findings Estimated Weight: 7lbs Cervical Exam: 5cm Effacement: 100% Station: 0 Presenting Part: Vertex Membrane Status: Bulging Bleeding/Discharge: Bloody Show EFM Findings - External Monitor Findings Baseline Heart Rate: 130 External Monitor Findings: Accelerations Present, No Pattern of Variable or Late Decelerations, Variability Moderate, Baseline Stable Contractions: Regular, Moderate, 45-90 Seconds Contraction Frequency: 5-6 min Assessment/Plan - Assessment 28 y.o. , 39w1d, Cat I NST, early labor - Plan Plan: Admit - Anticipate Vaginal Delivery - Date/Time of Admission Date of Admission: 01/17/19 Time of Admission: 09:02
[2019-01-17] MEDS ORDERED: Lactated Ringers 1000 ML Bag* 1,000 ML IV SCH ×2 (10:00→15:00)
[2019-01-17 11:01] LABS: Urine Benzodiazepine Screen None Detected (None Detect); Urine Opiates Screen None Detected (None Detect)
[2019-01-17] MEDS ORDERED: Lidocaine 2% VISCOUS* 15 ML UDC ONE (13:58)
[2019-01-17] MEDS ORDERED: Misoprostol TAB* 200 MCG PR ONE (14:37)
[2019-01-17] MEDS ORDERED: Acetaminophen TAB* 325 MG PO PRN (14:37)
[2019-01-17] MEDS ORDERED: OXYTOCIN* 10 UNITS/ML 1 ML VIAL IM ONE (14:37)
[2019-01-17] MEDS ORDERED: Glycerin ADULT SUPP PR PRN (14:37)
--- NOTE | 2019-01-17 14:37 | PROCNOTE ---
[facility] OB: Delivery Note - Delivery A Date of : 01/17/19 Time of : 14:06 Sex: Male Score 1 Minute: 9 Score 5 Minutes: 9 Gestational Age in Weeks and Days at Delivery: 39 Weeks and 1 Days Delivery Method: Spontaneous Vaginal Labor: Spontaneous Amniotic Fluid: Clear Estimated Blood Loss: 200 Anesthesia/Analgesia: None Delivered By: Barbie Anderson - Nursery Level of Nursery: Regular/Bedside - Perineum Perineal Injury: Perineal Laceration, 1st Degree Perineal Repair: By Delivering Practioner - Events Delivery Events of Note: Post- Bleeding - Meds Given
[2019-01-17] MEDS ORDERED: Lidocaine 1% INJ* 10 MG/ML 30 ML SDV ONE (15:07)
[2019-01-17] MEDS ORDERED: Ammonia Inhalant* 1 EA AMP ONE (16:16)
[2019-01-17] MEDS: Ibuprofen TAB* 600 MG PO PRN ×2 (17:25→23:48)
[2019-01-17] MEDS: Dibucaine 1% 28.35 GM TUBE PR PRN (17:25)
[2019-01-17] MEDS: Witch Hazel PAD* JAR TOPICAL PRN (17:25)
[2019-01-17] MEDS ORDERED: Simethicone TAB* 80 MG TAB.CHEW PO SCH (17:30)
[2019-01-17] MEDS: Docusate CAP* 100 MG PO SCH (20:39)
[2019-01-18 06:40] LABS: Hematocrit 37 % (35-47); Mean Corpuscular HGB Conc 35 g/dL (31-36); Mean Corpuscular Hemoglobin 31 pg (27-31); Mean Corpuscular Volume 90 fL (80-97); Mean Platelet Volume 9.1 fL (7.4-10.4); Platelet Count 187 10^3/uL (150-450); Red Blood Count 4.15 10^6 /uL (3.70-4.87); Red Cell Distribution Width 14 % (10-15); White Blood Count 20.1 10^3/uL (3.5-10.8)
[2019-01-18 07:39] LABS: ABS Basophils 0.1 10^3/ul (0-0.2); ABS Eosinophils 0.1 10^3/ul (0-0.6); ABS Lymphocytes 2.1 10^3/ul (1.0-4.8); ABS Monocytes 1.7 10^3/ul (0-0.8); ABS Neutrophils 16.2 10^3/ul (1.5-7.7); Eosinophil % 0.3 %; Lymphocyte % 10.3 %
[2019-01-18] MEDS: Witch Hazel PAD* JAR TOPICAL PRN (07:45)
[2019-01-18] MEDS: Docusate CAP* 100 MG PO SCH ×3 (07:45→21:04)
[2019-01-18] MEDS: Dibucaine 1% 28.35 GM TUBE PR PRN (07:45)
[2019-01-18] MEDS: Ibuprofen TAB* 600 MG PO PRN ×3 (07:46→21:04)
[2019-01-18] MEDS ORDERED: Ferrous Gluconate TAB* 324 MG TAB PO SCH (09:00)
--- NOTE | 2019-01-18 13:48 | PTEDU ---
Patient Name: YARI QUINTERO QUINTERO YARI selected video: Never Ever Shake a Baby to view on 01/18/2019 at 1:47:49 PM from [id number]
--- NOTE | 2019-01-18 13:57 | PTEDU ---
Patient Name: YARI QUINTERO QUINTERO YARI selected video: BBOB: Nurturing Your Gorgeous &Growing Baby by to dony lainez on 01/18/2019 at 1:56:34 PM from [id number]
[2019-01-19 08:04] VITALS: BP 121/69
[2019-01-19] MEDS: Ibuprofen TAB* 600 MG PO PRN (08:18)
[2019-01-19] MEDS: Docusate CAP* 100 MG PO SCH (08:19)
[2019-01-19] MEDS ORDERED: Tetan/Diph/Pertus SYR(Tdap)* 0.5 ML SYR(BOOSTRIX) use SYR contains LATEX IM ONE (08:28)
== END 2019-01-19 11:30 | disposition home or self-care (01) | DRG 806 ==
LOC: MCHOBOUT 05:40 → MCHOB 09:04
PROVIDERS: ADMIT Midwife; ATTEND Midwife
PROC: 10E0XZZ Delivery of Products of Conception, External Approach (ICD-10-PCS; principal; 2019-01-17)
PROC: 0HQ9XZZ Repair Perineum Skin, External Approach (ICD-10-PCS; 2019-01-17)
PROC: 4A1HXCZ Monitoring of Products of Conception, Cardiac Rate, External Approach (ICD-10-PCS; 2019-01-17)
PROC: 10907ZC Drainage of Amniotic Fluid, Therapeutic from Products of Conception, Via Natural or Artificial Opening (ICD-10-PCS; 2019-01-17)
DX: O77.0 Labor and delivery complicated by meconium in amniotic fluid (principal); O72.1 Other immediate postpartum hemorrhage; Z37.0 Single live birth; O70.0 First degree perineal laceration during delivery; Z3A.39 39 weeks gestation of pregnancy; Z91.030 Bee allergy status; Z91.041 Radiographic dye allergy status; Z91.040 Latex allergy status
CPT/HCPCS: 36415; 80307; 85025; 90715; A9270-GY; J2590

== ENCOUNTER 2021-06-11 22:46 | Inpatient (IN) ==
[2021-06-12 00:24] LABS: Urine Benzodiazepine Screen None Detected (None Detect); Urine Cannabinoids Screen None Detected (None Detect); Urine Opiates Screen None Detected (None Detect)
[2021-06-12] MEDS ORDERED: Lidocaine 1% VIAL 10 MG/ML VIAL ONE (16:08)
[2021-06-12] MEDS ORDERED: Dibucaine 1% OINT 28.35 GM TUBE PR PRN (16:24)
[2021-06-12] MEDS ORDERED: Glycerin ADULT 2.4 gm SUPP PR PRN (16:24)
[2021-06-12] MEDS ORDERED: Witch Hazel PAD JAR TOPICAL PRN (16:24)
[2021-06-12] MEDS ORDERED: Lactated Ringers 1000 ml BAG 1,000 ML IV SCH (17:00)
[2021-06-13 07:59] VITALS: BP 114/68
[2021-06-13 08:30] LABS: ABS Lymphocytes 1.5 10^3/ul (1.0-4.8); ABS Neutrophils 11.3 10^3/ul (1.5-7.7); Eosinophil % 0.3 %; Hematocrit 35 % (35-47); Hemoglobin 11.7 g/dL (12.0-16.0); Lymphocyte % 11.1 %; Mean Corpuscular HGB Conc 33 g/dL (31-36); Mean Corpuscular Hemoglobin 29 pg (27-31); Mean Corpuscular Volume 89 fL (80-97); Mean Platelet Volume 9.6 fL (7.4-10.4); Platelet Count 166 10^3/uL (150-450); Red Cell Distribution Width 16 % (10-15); White Blood Count 13.9 10^3/uL (3.5-10.8)
== END 2021-06-13 17:35 | disposition home or self-care (01) | DRG 807 ==
LOC: MCHOBOUT 22:46 → MCHOB 06-12 07:48
PROVIDERS: ADMIT Midwife; ATTEND Midwife

== ENCOUNTER 2023-12-11 06:05 | Inpatient (IN) ==
[2023-12-11] MEDS ORDERED: Lactated Ringers 1000 ml BAG 1,000 ML IV ONE ×2 (06:43→08:05)
[2023-12-11] MEDS ORDERED: Buffered Lidocaine 1% SYRIN 1 ml INTRADERM ONE (06:43)
[2023-12-11 07:16] LABS: ABS Lymphocytes 1.5 10^3/uL (1.0-4.8); ABS Monocytes 0.9 10^3/uL (0.0-0.9); ABS Neutrophils 9.9 10^3/uL (1.5-7.6); ABS Nucleated RBC 0.01 10^3/ul; Eosinophil % 0.3 %; Hematocrit 39.6 % (35-45); Hemoglobin 13.4 g/dL (11.5-14.3); Lymphocyte % 12.4 %; Mean Corpuscular Hemoglobin 30.4 pg (27-33); Mean Corpuscular Hgb Conc 33.9 g/dL (31-36); Mean Corpuscular Volume 89.6 fL (80-97); Mean Platelet Volume 9.8 fL (7.5-11.2); Nucleated Red Blood Cells % 0.1 %/100WBC (0.0-0.8); Platelet Count 177 10^3/uL (150-450); Red Blood Count 4.42 10^6/uL (3.63-4.92); Red Cell Distribution Width 14.4 % (12-17); White Blood Count 12.4 10^3/uL (3.8-11.8)
[2023-12-11 07:32] LABS: Urine Benzodiazepine Screen None Detected (None Detect); Urine Cannabinoids Screen None Detected (None Detect); Urine Opiates Screen None Detected (None Detect)
[2023-12-11] MEDS ORDERED: Lidocaine 1.5% EPI 1:200,000 30 ML SDV ONE (07:34)
[2023-12-11] MEDS ORDERED: Phenylephrine 40 mcg/mL 10mL (400mcg) SYRINGE ONE (07:34)
[2023-12-11] MEDS ORDERED: OBEPIDURAL (200 ML) 200 ML EPIDURAL ONE (07:34)
[2023-12-11] MEDS: Lactated Ringers 1000 ml BAG 1,000 ML IV SCH (07:43)
[2023-12-11] MEDS: OBEPIDURAL (200 ML) 200 ML EPIDURAL SCH (07:59)
[2023-12-11] MEDS ORDERED: Phenylephrine 40 mcg/mL 10mL (400mcg) SYRINGE IV PUSH PRN ×2 (08:05)
[2023-12-11] MEDS ORDERED: Sodium Citrate/Citric Acid LIQ 15 ML UDC PO PRN (08:05)
[2023-12-11] MEDS ORDERED: Lactated Ringers 1000 ml BAG 1,000 ML IV SCH (09:00)
[2023-12-11 09:05] LABS: Urine Appearance Clear; Urine Bilirubin Negative (Negative); Urine Blood 1+ (Negative); Urine Color Light-Yellow; Urine Glucose Negative (Negative); Urine Ketones Negative (Negative); Urine Nitrite Negative (Negative); Urine Protein Negative (Negative); Urine Urobilinogen Negative (Negative); Urine pH 7.5 (5.0-8.0)
[2023-12-11 09:16] LABS: Urine Bacteria Absent /HPF (Absent); Urine Red Blood Cell 3+(>10/hpf) /HPF (0-Trace); Urine White Blood Cell Trace(0-5/hpf) /HPF (0-Trace)
[2023-12-11] MEDS: Oxytocin 10 UNITS/ML 1 ML VIAL IM ONE (13:15)
[2023-12-11] MEDS: Lidocaine 1% VIAL 10 MG/ML 30 ML VIAL INJ PRN (13:18)
[2023-12-11] MEDS ORDERED: Oxytocin in LR 20,000 MILLI.UNIT/1,000 ML BAG IV ONE (13:20)
[2023-12-11] MEDS ORDERED: Oxytocin 10 UNITS/ML 1 ML VIAL ONE (13:20)
[2023-12-11] MEDS: Oxytocin in LR 20,000 MILLI.UNIT/1,000 ML BAG IV SCH (13:22)
[2023-12-11] MEDS ORDERED: Methylergonovine 0.2 mg AMPULE 1 ml AMP ONE (13:33)
[2023-12-11] MEDS ORDERED: Tranexamic Acid 1 GM/100ML BAG 0 MG/0 ML BAG IV ONE (13:33)
[2023-12-11] MEDS: Methylergonovine 0.2 mg AMPULE 1 ml AMP IM ONE (13:35)
[2023-12-11] MEDS ORDERED: Glycerin ADULT 2.4 gm SUPP PR PRN (14:17)
[2023-12-11] MEDS ORDERED: Polyethylene Glycol 3350 17 GM PACKET PO PRN (14:17)
[2023-12-11] MEDS ORDERED: Lidocaine 2% w/ EPI 1:200,000 MPF 20 ML SDV VIAL ONE (14:38)
[2023-12-11] MEDS ORDERED: fentaNYL 100 mcg/2 ml 50 MCG/ML VIAL ONE (14:38)
[2023-12-11] MEDS: Dibucaine 1% OINT 28.35 GM TUBE PR PRN (16:16)
[2023-12-11] MEDS: Witch Hazel PAD JAR TOPICAL PRN (16:16)
[2023-12-11] MEDS ORDERED: ceFAZolin VIAL 2 GM in NS 0.9% 100 ml BAG 100 ML IVPB ONE (16:38)
[2023-12-11] MEDS: ceFAZolin 2 GM/50 ML BAG IV ONE (17:56)
[2023-12-12 07:16] LABS: ABS Lymphocytes 1.7 10^3/uL (1.0-4.8); ABS Monocytes 0.8 10^3/uL (0.0-0.9); ABS Neutrophils 10.2 10^3/uL (1.5-7.6); Eosinophil % 0.3 %; Hematocrit 31.7 % (35-45); Hemoglobin 10.9 g/dL (11.5-14.3); Lymphocyte % 13.4 %; Mean Corpuscular Hemoglobin 30.9 pg (27-33); Mean Corpuscular Hgb Conc 34.4 g/dL (31-36); Mean Corpuscular Volume 89.6 fL (80-97); Mean Platelet Volume 9.5 fL (7.5-11.2); Platelet Count 147 10^3/uL (150-450); Red Blood Count 3.54 10^6/uL (3.63-4.92); Red Cell Distribution Width 14.5 % (12-17); White Blood Count 12.8 10^3/uL (3.8-11.8)
[2023-12-12 08:08] VITALS: BP 111/66
== END 2023-12-12 15:05 | disposition home or self-care (01) | DRG 807 ==
LOC: MCHOBOUT 06:05 → MCHOB 06:38
PROVIDERS: ADMIT Advanced Practice Midwife